=== PATIENT | male | born 1995 | race Caucasian/White ===

== ENCOUNTER 2022-04-26 14:49 | Emergency (ER) | payer MEDICAID, SELFPAY ==
--- NOTE | ~2022-04-26 | XR_ITS ---
EXAMINATION: XR knee RT 3V DATE: 04/26/2022 15:25 INDICATION: Right knee injury. TECHNIQUE: 3 views of right knee were obtained. COMPARISON: None. FINDINGS: There is a comminuted fracture involving the lateral tibial plateau, intercondylar eminence , and medial tibial plateau. There is up to 3 mm depression of the articular surface at the lateral t ibial plateau. Joint spaces are otherwise normal. There is a large hemarthrosis. IMPRESSION: 1. Bicondylar fracture of proximal tibia. 2. Large knee hemarthrosis. Reviewed, dictated and finalized at location B.
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
[2022-04-26 16:30] VITALS: BP 133/79; PULSE 78; RESP 16; TEMP 37; O2SAT 100
--- NOTE | 2022-04-26 16:56 | PC.NURSE ---
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
--- NOTE | 2022-04-26 17:08 | PC.NURSE ---
right leg immobilizer placed and patient was able to demonstrate proper crutch use. patient is currently refusing ambulance transport and is going to go POV. Dr Albarado spoke directly with patient and discussed risks of POV. patient verbalized understanding and refusal signed for transport. patient and verbalized that they will go directly to [facility] and not make any stops.
== END 2022-04-26 17:20 | disposition short-term general hospital (02) ==
PROVIDERS: Emergency Provider Emergency Medicine
DX: S82.141A Displaced bicondylar fracture of right tibia, initial encounter for closed fracture (principal); X58.XXXA Exposure to other specified factors, initial encounter
CPT/HCPCS: 73562; 99285

== ENCOUNTER 2025-02-19 17:13 | Emergency (ER) | payer SELFPAY ==
--- NOTE | ~2025-02-19 | XR_ITS ---
HISTORY: injury COMPARISON: None TECHNIQUE: 2 views of the right third digit were performed. FINDINGS: Acute displaced fracture of the tuft of the left third digit is identified. No additional fracture deformities are noted. Joint spaces are preserved and alignment is maintained. Soft tissues are without radiopaque foreign body or significant calcification. Age-appropriate mineralization. IMPRESSION: Acute displaced fracture of the tuft of the left third digit. No radiopaque foreign body Reviewed, dictated and finalized at location A.
--- OUTSIDE RECORDS SUMMARY | 2025-02-19 17:15 | XMS_ITS | Clinical Summary ---
Author Organization [facility] Address [address] [place] [address] Care Team Providers Care Knock Out Hand Name Role Phone Minerva Chapis Primary Care Provider [phone] Source Comments [facility],non-owned Affiliates and Associated Physician Practices is amultiple site organization consisting of ambulatory clinics and hospital sitesin [place], [place], [place] and [place]. This disclosure is being madepursuant to the Care Everywhere program and may not contain all information available regarding this patient. Last updated 18.[facility] Allergies No known active allergies Medications * Be aware that medications may not be up to date on this document. Alwaysverify current medications with the patient. Medication Sig Dispensed Refills Start Date End Date Status cyclobenzaprine (FLEXERIL) 10 MG tablet Take 1 (one) tablet by mouth 3 times daily as needed for Muscle Spasms 30 tablet 05/12/2022 Active Additional Information Patient not taking.Reported on 06/30/2022 docusate sodium (COLACE) 100 MG capsuleIndications :Closed fracture of right tibia and fibula with routine healing, subsequent encounter Take 1 (one) capsule by mouth once daily 05/12/2022 Active Additional Information Patient not taking.Reported on 06/30/2022 senna (SENOKOT) 8.6 MG tabletIndications: Closed fracture of right tibia and fibula with routine healing, subsequent encounter Take 1 (one) tablet by mouth once daily 05/12/2022 Active Additional Information Patient not taking.Reported on 06/30/2022 apixaban (ELIQUIS) 2.5 MG tablet Take 1 (one) tablet by mouth 2 times daily 70 tablet 05/12/2022 Active Additional Information Patient not taking.Reported on 06/30/2022 acetaminophen (TYLENOL) 500 MG tablet Take 2 (two) tablets by mouth every 6 hours Maximum allowable Acetaminophen amount = 4 Grams (4000 mg) / 24 hours. 30 tablet 05/12/2022 Active Additional Information Patient not taking.Reported on 06/30/2022 oxyCODONE, immediate release, (ROXICODONE) 5 MG tabletIndications: Closed fracture of right tibia and fibula with routine healing, subsequent encounter Take 1 (one) tablet by mouth every 6 hours as needed (breakthrough pain) 30 tablet 05/12/2022 Active Additional Information Patient not taking.Reported on 06/30/2022 Active Problems Problem Noted Date Diagnosed Date Closed fracture of right fibula and tibia 2021 Closed fracture of right tib ia and fibula, initial encounter 04/26/2022 Closed fracture of lateral portion of right tibi al plateau Social History Tobacco Use Types Packs/Day Years Used Date Smoking Tobacco: Every Day Cigarettes Smokeless Tobacco: Never Tobacco Cessation:Ready to Q uit: Not Asked; Counseling Given: Not Answered Alcohol Use Standard Drinks/Week Comments Not Currently 0 (1 standard drink = 0.6 oz pur e alcohol) AUDIT-C Answer Date Recorded Q1: How often do you have a drink containing alc ohol? Never 05/10/2022 Average Number of Drinks Not on file 022 Frequency of Binge Drinking Not on file 04/15 Hunger Vital Sign Answer Date Recorded Within the past 12 months, y ou worried that your food would run out before you got the money to buy more. Never true 05/10/20 22 Within the past 12 months, t he food you bought just didn't last and you didn't have money to get more. 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 Height 185.4 cm (6' 1 ) 10/27/2022 10:13 AM DATA SYSTEMS MANAGER Body Mass Index 26.91 10/27/2022 10:13 AM DATA SYSTEMS MANAGER Plan of Treatment Health Maintenance Due Date Last Done Comments HIV SCREENING 2012 HEPATITIS C SCREENING 07/03/2015 DTAP/TDAP/TD VACCINES (1 - Tdap) 2016 HEPATITIS B VACCINE (1 of 3 - 19+ 3-dose series) 2016 PNEUMOCOCCAL VACCINE (1 of 2 - PCV) 2016 COVID-19 VACCINE (3 - 2023-2 5 season) 2024 07/30/2021, 07/09/2021 DEPRESSION SCREENING 11/14/2024 INFLUENZA VACCINE (Season Ended) 2025 ZOSTER VACCINE (1 of 2) 2047 HIB VACCINE Aged Out No longer eligi ble based on patient's age to complete this topic HPV VACCINE Aged Out No longer eligi ble based on patient's age to complete this topic MENINGOCOCCAL (Group B) VACCINE SHARED DECISION-MAKING Aged Out No longer eligible based on patient's age to complete this topic MENINGOCOCCAL GROUPS A/C/Y/W VACCINE Aged Out No longer eligible b ased on patient's age to complete this topic Medical Devices Implanted Type Area Healthcare Architect Device Identifier Shelf Expiration Date Model / Serial / Lot Sub Bngf Ostst Xr Pelt Injector 5cc Implanted:Qty: 1 on 05/10/2022 by Sharif Shaikh MD at [facility] Right: Tibia [employer] 07/02/2029 [id number] / / [id number] Screw 3.5mm 75mm 2.2mm Mldir Lck Sq Drv Implanted:Qty: 1 on 05/10/2022 by Sharif Shaikh MD at [facility] Right: Tibia [employer] 5 / / Plate 3 Hl Lck Tib Rt Prox Std Crv Alps Implanted:Qty: 1 on 05/10/2022 by Sharif Shaihk MD at [facility] Right: Tibia [employer] 3 / / Screw 3.5mm 85mm T15 Lgr Rufina Lck Slf-Tap Implanted:Qty: 2 on 05/10/2022 by Sharif Shaikh MD at [facility] Right: Tibia [employer] 5 / / Screw 3.5mm 80mm T15 Lgr Rufina Lck Slf-Tap Implanted:Qty: 1 on 05/10/2022 by Sharif Shaikh MD at [facility] Right: Tibia [employer] 0 / / Screw 3.5mm 46mm Ft Hex Drv Nlckg Thad Implanted:Qty: 1 on 05/10/2022 by Sharif Shaikh MD at [facility] Right: Tibia [employer] 6 / / 3.5mm X 75mm Low Profile Non-Locking Cortical Screw Implanted:Qty: 1 on 05/10/2022 by Sharif Shaikh MD at [facility] Right: [employer] 5 / / Explanted Type Area Healthcare Architect Device Identifier Shelf Expiration Date Model / Serial / Lot Wire K 1.6mm 6in Hlf Bynt Pnt Ss Fx Explanted:Qty: 4 on 05/10/2022 by Sharif Shaikh MD at [facility] Right: Tibia [employer] [id number] / / Advance Directives * Full Code (Latest Code Status on File) Date Activated Date Inactivated Comments 04/27/2022 3:38 AM 04/27/2022 2:21 PM Care Teams Knock Out Hand Relationship Specialty Start Date End Date Chapis Palma DO [address] [place] [address] [phone] PCP - General 04/27/22
[2025-02-19 17:17] VITALS: BP 145/71; PULSE 104; RESP 20; TEMP 37; O2SAT 97
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
--- OUTSIDE RECORDS SUMMARY | 2025-02-19 20:05 | XMS_ITS | Clinical Summary ---
Author Organization [facility] [employer] Address [address] [place] [address] Care Team Providers Care Priming Mixture Carrier Name Role Phone Minerva Chapis Primary Care Provider Source Comments [facility] [employer],non-owned Affiliates and Associated Physician Practices is amultiple site organization consisting of ambulatory clinics and hospital sitesin [place], [place], [place] and [place]. This disclosure is being madepursuant to the Care Everywhere program and may not contain all information available regarding this patient. 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 Height 185.4 cm (6' 1 ) 10/27/2022 10:13 AM STOP ATTACHER Body Mass Index 26.91 10/27/2022 10:13 AM STOP ATTACHER Plan of Treatment Health Maintenance Due Date [...] this topic Medical Devices Implanted Type Area Die Trouble Shooter Device Identifier Shelf Expiration Date Model / Serial / Lot Sub Bngf Ostst Xr Pelt Injector 5cc Implanted:Qty: 1 on 05/10/2022 by Sharif Shaikh MD at [facility] Right: Tibia [employer] 07/02/2029 [id number] / / [id number] Screw 3.5mm 75mm 2.2mm Mldir Lck Sq Drv Implanted:Qty: 1 on 05/10/2022 by Sharif Shaikh MD at [facility] Right: [employer] 5 / / Plate 3 Hl Lck Tib Rt Prox Std Crv Alps Implanted:Qty: 1 on 05/10/2022 by Sharif Shaikh MD at [facility] Right: [employer] 3 / / Screw 3.5mm 85mm T15 Lgr Rufina Lck Slf-Tap Implanted:Qty: 2 on 05/10/2022 by Sharif Shaikh MD at [facility] Right: [employer] 5 / / Screw 3.5mm 80mm T15 Lgr Rufina Lck Slf-Tap Implanted:Qty: 1 on 05/10/2022 by Sharif Shaikh MD at [facility] Right: [employer] 0 / / Screw 3.5mm 46mm Ft Hex Drv Nlckg Thad Implanted:Qty: 1 on 05/10/2022 by Sharif Shaikh MD at [facility] Right: [employer] 6 / / 3.5mm X 75mm Low Profile Non-Locking Cortical Screw Implanted:Qty: 1 on 05/10/2022 by Sharif Shaikh MD at [facility] Right: [employer] 5 / / Explanted Type Area Die Trouble Shooter Device Identifier Shelf Expiration Date Model / Serial / Lot Wire K 1.6mm 6in Hlf Bynt Pnt Ss Fx Explanted:Qty: 4 on 05/10/2022 by Sharif Shaikh MD at [facility] Right: [employer]ia [employer] [id number] / / Advance Directives * Full Code (Latest Code Status on File) Date Activated Date Inactivated Comments 04/27/2022 3:38 AM 04/27/2022 2:21 PM Care Teams Priming Mixture Carrier Relationship Specialty Start Date End Date Chapis Palma DO [address] [place] [address] [phone] PCP - General 04/27/22
[2025-02-19] MEDS: IBUPROFEN 600 MG TABLET PO (20:43)
--- NOTE | 2025-02-19 20:56 | PC.NURSE ---
Pt. refused tetanus vaccination. Pt. educated of the risks of not receiving the vaccine, which include , by this RN and Dr. Wilks. The pt. verbalized understanding and is A&Ox4. Pt. continues to refuse vaccination.
[2025-02-19 23:02] VITALS: BP 143/95; PULSE 95; RESP 16; O2SAT 98
== END 2025-02-19 23:07 | disposition home or self-care (01) ==
PROVIDERS: Emergency Provider Emergency Medicine
DX: S62.632A Displaced fracture of distal phalanx of right middle finger, initial encounter for closed fracture (principal); S61.212A Laceration without foreign body of right middle finger without damage to nail, initial encounter; W23.0XXA Caught, crushed, jammed, or pinched between moving objects, initial encounter
CPT/HCPCS: 12001; 73140; 99283; A9270